=== PATIENT | male | born 1960 | race American Indian/Alaskan Native ===

== ENCOUNTER 2016-06-10 06:46 | Outpatient (CLI) | payer BC ==
[2016-06-10] MEDS ORDERED: NACL ONE (08:57)
--- NOTE | 2016-06-10 09:44 | Cat Scan Report ---
CT scan of chest with IV contrast: History: Gastric mass. Findings: No endobronchial or mediastinal mass. No mediastinal, hilar or axillary adenopathy. No pleural pericardial effusion. Normal parenchyma. No consolidation or mass. Impression: Essentially negative CT scan of chest.
--- NOTE | 2016-06-10 09:48 | Cat Scan Report ---
CT scan of abdomen and pelvis with IV contrast: History: Gastric mass. Findings: Normal liver spleen pancreas and gallbladder. There is no distinct mass identified in the stomach and the duodenum . Mucosal irregularity is noted. There is a fluid level identified. Normal adrenals and kidney parenchyma and bladder. No free intraperitoneal fluid or air. No evidence of adenopathy. Normal aorta. Gaseous colon with moderate volume stool in colon. No evidence of appendicitis or diverticulitis. Impression: Suspected mucosal changes of the stomach. Gastroscopy may be recommended.
== END 2016-06-10 06:47 | disposition home or self-care (01) ==
LOC: CT 06:46 → EDSEX 08:00
PROVIDERS: ATTEND Internal Medicine
DX: K31.89 Other diseases of stomach and duodenum (principal)
CPT/HCPCS: 71260; 74177; Q9967

== ENCOUNTER 2016-07-15 07:45 | Emergency (ER) | payer BC ==
[2016-07-15 09:14] LABS: Basophils % (Auto) 0.4 % (0.0-1.8); Eosinophils % (Auto) 0.4 % (0.0-4.3); Hematocrit 39.3 % (35.5-45.6); Hemoglobin 12.8 gm/dl (11.8-15.2); Mean Corpuscular HGB Conc 33 % (32-34); Mean Corpuscular Hemoglobin 29 pg (28-32); Mean Corpuscular Volume 89 fl (84-94); Platelet Count 367 K/mm3 (140-440); Red Cell Distribution Width 14.6 % (13.2-15.2); White Blood Count 10.3 K/mm3 (4.5-11.0)
[2016-07-15 09:23] LABS: Bilirubin,Urine NEG (Negative); Blood,Urine NEG (Negative); Ketones,Urine NEG (Negative); Leukocyte Esterase,Urine NEG (Negative); Mucus,Urine FEW /HPF; Nitrite,Urine NEG (Negative); Protein,Urine <15 mg/dL mg/dL (Negative); Sperm,Urine FEW /HPF (NP); Urobilinogen,Urine < 2.0 mg/dL (<2.0)
--- NOTE | 2016-07-15 09:57 | Emergency Department Report ---
ED Male HPI - General Chief complaint: Urogenital-Male Stated complaint: UNABLE TO URINATE Time Seen by Provider: 07/15/16 08:51 Source: patient Mode of arrival: Ambulatory Limitations: No Limitations - History of Present Illness Initial comments: 55-year-old male with a past medical history of stomach cancer status post partial gastrectomy 06/26/2016 which includes removal 75% of his stomach presents to the hospital with difficulty urinating. Patient has not had any urinary problems until his recent surgery. He was having difficulty with urine output and was placed on Flomax. Patient was having dribbling urinary output throughout the day yesterday and became obstructed at 8 PM. 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 Patient has not had a history of urinary obstruction in the past. Urologist:Dr Lala Ramos and patient is scheduled to see her partner soon. Patient states he is currently taking Flomax, Pepcid, and Carafate. He also has a pain medication. Patient has been doubling up on Flomax and an effort to alleviate urinary retention - Related Data Allergies Allergy/AdvReac Type Severity Reaction Status Date / Time No Known Allergies Allergy Unverified 06/10/16 06:47 ED Review of Systems ROS: Stated complaint: UNABLE TO URINATE Other details as noted in HPI Comment: All other systems reviewed and negative Other: Constitutional: No fevers chills Eyes: No eye pain visual changes ENT: No ear pain or throat pain Neck: Denies pain Respiratory: Denies cough wheezing shortness of breath Cardiovascular: Denies chest pain, palpitations, syncope GI: as per hpi : as prh pi Musculoskeletal: Denies back pain Skin: Denies rash, lesions, erythema Neurologic: Denies headache, numbness, weakness Psychiatric: Denies suicidal ideation, hallucinations ED Past Medical Hx - Past Medical History Previous Medical History?: Yes Hx of Cancer: Yes (stomach) - Surgical History Past Surgical History?: Yes Additional Surgical History: Stomach surgery with 75% of stomach removed - Social History Smoking Status: Never Smoker Substance Use Type: Prescribed ED Physical Exam - General Limitations: No Limitations - Other Other exam information: Examined after Marcial placement. Nurse Had difficulty placing initial Marcial but has successful coud catheter. Patient reports relief and suprapubic abdominal pain after Marcial placement. Initial output of 100 mL General: No limitations, patient is alert in no acute distress Head exam: Atraumatic, normocephalic Eyes exam: Normal appearance, pupils equal reactive to light, extraocular movements intact ENT: Moist mucous membrane, normal oropharynx Neck exam: Normal inspection, full range of motion, no meningismus nontender Respiratory exam: Clear to auscultation bilateral, no wheezes, rales, crackles Cardiovascular: Normal rate and rhythm, normal heart sounds Abdomen: Soft, midline vertical upper to mid abdominal phone with Steri-Strips in place. No wound dehiscence. Mild tenderness to surgical/wound area mild suprapubic tenderness, with normal bowel sounds, no rebound, or guarding : Marcial catheter in place Extremity: Full range of motion normal inspection no deformity Back: Normal Inspection, full range of motion, no tenderness Neurologic: Alert, oriented x3, cranial nerves intact, no motor or sensory deficit Psychiatric: normal affect, normal mood Skin: Warm, dry, intactam ED Course Vital Signs 07/15/16 07/15/16 07/15/16 08:04 08:51 11:29 Temperature 97.6 F Pulse Rate 122 H Respiratory 20 24 18 Rate Blood Pressure 164/101 Blood Pressure [Left] O2 Sat by Pulse 100 97 Oximetry 07/15/16 12:40 Temperature 97.4 F L Pulse Rate 89 Respiratory 16 Rate Blood Pressure Blood Pressure 125/81 [Left] O2 Sat by Pulse 96 Oximetry - Reevaluation(s) Reevaluation #1: 07/15/16 11:21 Patient requesting pain medication at this time. Dilaudid 0.5 mg and Zofran ordered. Patient also received 1 L normal saline for mild hyponatremia/ hypochloremia Reevaluation #2: 07/15/16 12:31 pt reports feeling much better with ed treatment Reevaluation #3: 07/15/16 12:54 Vital signs improved after Marcial catheter placed - Consultations Consultation #1: 07/15/16 10:59 Case discussed with Eamon SAN for urology [facility] at [phone]. She states that patient is now seeing Dr Chow and will pass message that patient required ER visitation for urinary retention and will be discharged home. ED Medical Decision Making - Lab Data Result diagrams: 07/15/16 09:05 07/15/16 09:05 Lab Results 0507/15/16 07/15/16 Range/Units 08:40 09:05 09:05 WBC 10.3 (4.5-11.0) K/mm3 RBC 4.40 (3.65-5.03) M/mm3 Hgb 12.8 (11.8-15.2) gm/dl Hct 39.3 (35.5-45.6) % MCV 89 (84-94) fl MCH 29 (28-32) pg MCHC 33 (32-34) % RDW 14.6 (13.2-15.2) % Plt Count 367 (140-440) K/mm3 Lymph % (Auto) 10.1 L (13.4-35.0) % Thomas % (Auto) 6.7 (0.0-7.3) % Eos % (Auto) 0.4 (0.0-4.3) % Baso % (Auto) 0.4 (0.0-1.8) % Lymph # 1.0 L (1.2-5.4) K/mm3 Thomas # 0.7 (0.0-0.8) K/mm3 Eos # 0.0 (0.0-0.4) K/mm3 Baso # 0.0 (0.0-0.1) K/mm3 Seg Neutrophils % 82.4 H (40.0-70.0) % Seg Neutrophils # 8.5 H (1.8-7.7) K/mm3 Sodium 131 L (137-145) mmol/L Potassium 4.1 (3.6-5.0) mmol/L Chloride 91.3 L (98-107) mmol/L Carbon Dioxide 28 (22-30) mmol/L Anion Gap 16 mmol/L BUN 7 L (9-20) mg/dL Creatinine 0.8 (0.8-1.5) mg/dL Estimated GFR > 60 ml/min BUN/Creatinine Ratio 8.75 % Glucose 115 H (75-100) mg/dL Calcium 9.4 (8.4-10.2) mg/dL Urine Color Yellow (Yellow) Urine Turbidity Clear (Clear) Urine pH 5.0 (5.0-7.0) Ur Specific [place] 1.013 (1.003-1.030) Urine Protein <15 mg/dl (Negative) mg/dL Urine Glucose (UA) Neg (Negative) mg/dL Urine Ketones Neg (Negative) mg/dL Urine Blood Neg (Negative) Urine Nitrite Neg (Negative) Urine Bilirubin Neg (Negative) Urine Urobilinogen < 2.0 (<2.0) mg/dL Ur Leukocyte Esterase Neg (Negative) Urine WBC (Auto) 1.0 (0.0-6.0) /HPF Urine RBC (Auto) 1.0 (0.0-6.0) /HPF Urine Mucus Few /HPF Urine Sperm Few (MANAGER ESTATE) /HPF - Medical Decision Making Patient had relief with placement of Marcial. He will be discharged with the Marcial and leg bag for urinary retention. Case discussed with the urology office. Information will be passed on to Dr. Chow. No signs of infection. Patient received 1 L normal saline for mild hyponatremia/hypochloremia. Follow- up will be encouraged - Differential Diagnosis urinary retention, BPH, prostate cancer Critical Care Time: No Critical care attestation.: If time is entered above; I have spent that time in minutes in the direct care of this critically ill patient, excluding procedure time. ED Disposition Clinical Impression: Urine retention, Hyponatremia Disposition: DISCHARGED TO HOME OR SELFCARE Is pt being admited?: No Does the pt Need Aspirin: No Condition: Stable Instructions: Urinary Retention in Men (ED), Hyponatremia (ED) Additional Instructions: Continue to use the Marcial and leg bag until removed by your urologist. Return if symptoms worsen. Follow up with your doctor for further treatment and reevaluation of your sodium levels. Tour sodium today was 131 with a chloride of 91 prior to receiving your bag of IV fluids Referrals: [facility] [Other] - 2-3 Days PRIMARY CARE, [Primary Care Provider] - 2-3 Days Time of Disposition: 12:54
[2016-07-15 10:05] LABS: Anion Gap 16 mmol/L; BUN/Creatinine Ratio 8.75; Blood Urea Nitrogen 7 mg/dL (9-20); Calcium 9.4 mg/dL (8.4-10.2); Carbon Dioxide 28 mmol/L (22-30); Chloride 91.3 mmol/L (98-107); Glucose 115 mg/dL (75-100); Potassium 4.1 mmol/L (3.6-5.0); Sodium 131 mmol/L (137-145)
[2016-07-15] MEDS ORDERED: NACL 0.9% 1000 ML 1,000 ML IV ONE (10:34)
[2016-07-15] MEDS ORDERED: ZOFRAN IV ONE (11:20)
[2016-07-15] MEDS ORDERED: DILAUDID IV ONE (11:20)
[2016-07-15 12:41] VITALS: BP 125/81
== END 2016-07-15 13:50 | disposition home or self-care (01) ==
LOC: ED 07:45
DX: R33.9 Retention of urine, unspecified (principal); E87.1 Hypo-osmolality and hyponatremia; C16.9 Malignant neoplasm of stomach, unspecified
CPT/HCPCS: 36415; 51702; 80048; 81001; 85025; 96361; 96374; 96375; 99283; J1170; J2405; J7030

== ENCOUNTER 2016-07-17 08:04 | Outpatient (CLI) | payer BC ==
--- NOTE | 2016-07-18 07:55 | PET Report ---
PET SB TO MT INITIAL: HISTORY: Stomach cancer. TECHNIQUE: 12.9 millicuries F-18 FDG was administered intravenously. Noncontrast CT images and PET images were obtained from the skull base to the proximal thighs. Fused images were reviewed on a workstation. The patient's blood glucose level measured 86. COMPARISON: No previous PET CT. CT chest abdomen pelvis dated 06/10/16. FINDINGS: BRAIN: physiologic FDG uptake in the imaged brain. NECK: physiologic FDG uptake. MEDIASTINUM: physiologic FDG uptake. LUNGS: physiologic FDG uptake. PLEURA/PERICARDIUM: physiologic FDG uptake. THORACIC LYMPH NODES: physiologic FDG uptake. HEPATOBILIARY: physiologic FDG uptake. Mean liver SUV measures 2.4. PANCREAS: physiologic FDG uptake. SPLEEN: physiologic FDG uptake. ADRENAL GLANDS: physiologic FDG uptake. KIDNEYS/RENAL COLLECTING SYSTEMS: physiologic FDG uptake. BOWEL/MESENTERY: physiologic FDG uptake. Surgical changes in the stomach are noted since 06/10/16 exam. No abnormal radiotracer uptake in the stomach is demonstrated. PELVIC VISCERA: physiologic FDG uptake. ABDOMINAL/PELVIC LYMPH NODES: physiologic FDG uptake. MUSCULOSKELETAL: physiologic FDG uptake. IMPRESSION: Negative PET/CT. No evidence for residual disease or metastasis.
== END 2016-07-17 08:05 | disposition home or self-care (01) ==
LOC: PET 08:04
PROVIDERS: ATTEND Internal Medicine Hematology & Oncology
DX: C16.9 Malignant neoplasm of stomach, unspecified (principal)
CPT/HCPCS: 78815; 82962; A9552

== ENCOUNTER 2017-05-24 10:00 | Emergency (ER) | payer SELFPAY ==
[2017-05-24 11:28] LABS: Basophils # (Auto) 0.1 K/mm3 (0.0-0.1); Basophils % (Auto) 0.4 % (0.0-1.8); Eosinophils # (Auto) 0.1 K/mm3 (0.0-0.4); Eosinophils % (Auto) 0.7 % (0.0-4.3); Hematocrit 46.9 % (35.5-45.6); Hemoglobin 15.4 gm/dl (11.8-15.2); Lymphocytes # (Auto) 1.8 K/mm3 (1.2-5.4); Lymphocytes % (Auto) 14.6 % (13.4-35.0); Mean Corpuscular HGB Conc 33 % (32-34); Mean Corpuscular Hemoglobin 30 pg (28-32); Mean Corpuscular Volume 92 fl (84-94); Monocytes # (Auto) 1.4 K/mm3 (0.0-0.8); Monocytes % (Auto) 10.8 % (0.0-7.3); Platelet Count 335 K/mm3 (140-440); Red Blood Count 5.12 M/mm3 (3.65-5.03); Red Cell Distribution Width 15.1 % (13.2-15.2)
[2017-05-24 11:43] LABS: Alanine Aminotransferase 11 units/L (7-56); Albumin 3.8 g/dL (3.9-5); BUN/Creatinine Ratio 11; Blood Urea Nitrogen 9 mg/dL (9-20); Calcium 9.3 mg/dL (8.4-10.2); Hemolysis Index 8
--- NOTE | 2017-05-24 12:05 | XRay Report ---
Left knee 2 views: History: Left knee swelling with possible infection. Findings: Normal articular surfaces. No definite evidence of joint effusion. No fracture. Soft tissue swelling anterior aspect of the knee/patella. There is a large spur identified at the anterior superior patella. Impression: Spur anterior superior patella. Soft tissue swelling anterior to patella.
[2017-05-24 14:51] VITALS: BP 142/93
--- NOTE | 2017-05-24 16:14 | Emergency Department Report ---
- General Chief complaint: Extremity Injury, Lower Stated complaint: LEFT KNEE PAIN Time Seen by Provider: 05/24/17 15:24 Source: patient, family Mode of arrival: Ambulatory Limitations: No Limitations - History of Present Illness Initial comments: Patient reports that 4 days ago he noted a ingrown hair to his left knee.. Denies any numbness or tingling. [id number] pain medication taken without any relief. He said he meant to pull it out but he didn't and then he woke up the next morning it was infected. 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 Denies any calf tenderness or leg swelling. Denies any pain to leg. Pain is localized to me. Denies any radiation of pain proximally or distally. Pain is 8/10 worse with walking and movement better with rest then. Patient said there is pus coming out of his left knee. He said he started to squeeze it but is not getting any better. Patient reports he is a history of BPH, stomach cancer which he said he had surgery which they removed 2 and 75% of his stomach and now he is cancer free per patient. He denies any history of knee injury or arthritis. Denies any immune disorder. MD complaint: abscess/boil Onset/Timin -: days(s) Tetanus Up to Date: no Location: LLE (left knee) Severity: severe Severity scale (0 -10): 8 Quality: aching, constant Consistency: constant Improves with: immobilization, rest Worsens with: palpation, movement Context: other (infection from ingrown hair) Associated symptoms: athralgias Treatments Prior to Arrival: bandages, attempted to drain pus at, other (over- the-counter pain medicine) - Related Data Previous Rx's Medication Instructions Recorded Last Taken Type Acetaminophen/Codeine [Tylenol 1 tab PO Q6H PRN #12 tab 05/24/17 Unknown Rx /Codeine # 3 tab] Ibuprofen [Motrin] 600 mg PO Q8H PRN #15 tablet 05/24/17 Unknown Rx Sulfamethoxazole/Trimethoprim 2 each PO BID 10 Days #40 tablet 05/24/17 Unknown Rx [Bactrim DS TAB] Allergies Allergy/AdvReac Type Severity Reaction Status Date / Time No Known Allergies Allergy Unverified 06/10/16 06:47 Abscess Boil HPI - HPI Chief Complaint: Extremity Injury, Lower Stated Complaint: LEFT KNEE PAIN Time Seen by Provider: 05/24/17 15:24 Home Medications: Previous Rx's Medication Instructions Recorded Last Taken Type Acetaminophen/Codeine [Tylenol 1 tab PO Q6H PRN #12 tab 05/24/17 Unknown Rx /Codeine # 3 tab] Ibuprofen [Motrin] 600 mg PO Q8H PRN #15 tablet 05/24/17 Unknown Rx Sulfamethoxazole/Trimethoprim 2 each PO BID 10 Days #40 tablet 05/24/17 Unknown Rx [Bactrim DS TAB] Allergies/Adverse Reactions: Allergies Allergy/AdvReac Type Severity Reaction Status Date / Time No Known Allergies Allergy Unverified 06/10/16 06:47 ED Review of Systems ROS: Stated complaint: LEFT KNEE PAIN Other details as noted in HPI Comment: All other systems reviewed and negative Constitutional: no symptoms reported Respiratory: no symptoms reported Cardiovascular: denies: chest pain, palpitations, dyspnea on exertion, orthopnea , edema, syncope, paroxysmal nocturnal dyspnea Gastrointestinal: denies: abdominal pain, nausea, vomiting, diarrhea Musculoskeletal: joint swelling, arthralgia. denies: back pain, myalgia Skin: denies: rash Neurological: vertigo. denies: headache, numbness, paresthesias, confusion, abnormal gait ED Past Medical Hx - Past Medical History Previous Medical History?: Yes Hx of Cancer: Yes (stomach) Additional medical history: BPH - Surgical History Past Surgical History?: Yes Additional Surgical History: Stomach surgery with 75% of stomach removed - Family History Family history: hypertension - Social History Smoking Status: Current Every Day Smoker Substance Use Type: Alcohol, Marijuana, Prescribed - Medications Home Medications: Home Medications Medication Instructions Recorded Confirmed Last Taken Type Acetaminophen/Codeine [Tylenol 1 tab PO Q6H PRN #12 tab 05/24/17 Unknown Rx /Codeine # 3 tab] Ibuprofen [Motrin] 600 mg PO Q8H PRN #15 tablet 05/24/17 Unknown Rx Sulfamethoxazole/Trimethoprim 2 each PO BID 10 Days #40 tablet 05/24/17 Unknown Rx [Bactrim DS TAB] ED Physical Exam - General Limitations: No Limitations General appearance: alert, in no apparent distress - Head Head exam: Present: atraumatic, normocephalic, normal inspection - Eye Eye exam: Present: normal appearance, PERRL, EOMI Pupils: Present: normal accommodation - ENT ENT exam: Present: normal exam, normal orophraynx, mucous membranes moist - Neck Neck exam: Present: normal inspection, full ROM. Absent: tenderness, meningismus, lymphadenopathy, thyromegaly - Respiratory Respiratory exam: Present: normal lung sounds bilaterally. Absent: respiratory distress, chest wall tenderness - Cardiovascular Cardiovascular Exam: Present: regular rate, normal rhythm, normal heart sounds. Absent: systolic murmur, diastolic murmur - GI/Abdominal GI/Abdominal exam: Present: soft, normal bowel sounds. Absent: distended, tenderness, guarding, rebound, rigid, organomegaly, mass, bruit, pulsatile mass , hernia - Extremities Exam Extremities exam: Present: full ROM, tenderness (left knee), normal capillary refill, joint swelling (knee), other (no clubbing, cyanosis or edema. Extremities. +2 pulses to all extremities. No neurovascular compromise. +5 strength in all extremities.). Absent: normal inspection, pedal edema, calf tenderness - Expanded Lower Extremity Exam Left Hip exam: Present: normal inspection, full ROM, pelvic stability. Absent: tenderness, swelling, abrasion, laceration, ecchymosis, deformity, crepidus, dislocation, erythema, external rotation, internal rotation, shortening Upper Leg exam: Present: normal inspection, full ROM. Absent: tenderness, swelling, abrasion, laceration, ecchymosis, deformity, crepidus, dislocation, erythema Knee exam: Present: full ROM (patient able to flex and fully extend his left knee without any difficulties. He is able to ambulate without any difficulties) , tenderness (anterior left knee), swelling (anterior left knee), erythema ( cellulitis with quarter-sized indurated area that is fluctuant. Able to express pus from side.), full knee extension. Absent: normal inspection, abrasion, laceration, ecchymosis, deformity, crepidus, dislocation, effusion, pain w/ pronation/supination, posterior draw sign, pain/laxity with valgus, pain /laxity with varus Lower Leg exam: Present: normal inspection, full ROM. Absent: tenderness, swelling, abrasion, laceration, ecchymosis, deformity, crepidus, dislocation, erythema, palpable cord, Otis's sign Ankle exam: Present: normal inspection, full ROM. Absent: tenderness, swelling , abrasion, laceration, ecchymosis, deformity, crepidus, dislocation, erythema Foot/Toe exam: Present: normal inspection, full ROM. Absent: tenderness, swelling, abrasion, laceration, ecchymosis, deformity, crepidus, dislocation, erythema, amputation, puncture wound, foreign body, calcaneal tenderness, tenderness at base of 5th metatarsal, nail avulsion, subungual hematoma Neuro vascular tendon exam: Present: no vascular compromise. Absent: pulse deficit, abnormal cap refill, motor deficit, sensory deficit, tendon deficit, extremity cold to touch, pallor, abnormal 2-point discrimination, decreased fine /light touch, foot drop, peroneal nerve deficit, significant pain with passive ROM of distal joint Gait: Positive: observed and limited by pain - Back Exam Back exam: Present: normal inspection, full ROM. Absent: tenderness, CVA tenderness (R), CVA tenderness (L), muscle spasm, paraspinal tenderness, vertebral tenderness, rash noted - Neurological Exam Neurological exam: Present: alert, oriented X3, normal gait, reflexes normal - Psychiatric Psychiatric exam: Present: normal affect, normal mood - Skin Skin exam: Present: warm, dry, erythema, other. Absent: intact - Expanded Skin Exam Expanded Type of lesion: Present: abscess (left knee) Distribution of rash: other (left knee) Description of rash: Present: size (1 x 1 cm erythema with quarter size indurated fluctuant area.), tenderness, erythematous, swelling, discharge, fluctuant, indurated. Absent: bullous, petechial, purpuic, urticarial, crusting 1 - Left knee a cellulitis and minor abscess. Patient able to flex and extend knee without any difficulties and bleeding without any difficulties. ED Course Vital Signs 05/24/17 05/24/17 10:46 14:50 Temperature 97.9 F 97.8 F Pulse Rate 99 H 100 H Respiratory 16 20 Rate Blood Pressure 135/92 142/93 O2 Sat by Pulse 100 Oximetry - Reevaluation(s) Reevaluation #1: 05/24/17 17:27 Patient received clindamycin 600 mg IM and emergency room to treat left knee cellulitis and minor abscess, Boostrix 0.5 ml im, express minimal amount of pus. No signs of deep infection. X-ray does not show osteomyelitis or any effusion . Cleansed and flushed with iodine and normal saline, Neosporin ointment was applied and sterile dry dressing placed over 1. 05/24/17 17:28 - I & D Left Anterior Knee Type of Procedure: Simple Site: left anterior knee Blade Size: express pus with finger I & D Procedure: betadine prep, sterile drapes applied, sterile dressing applied , no gauze wick placed Progress: Left knee cleansed with iodine and normal saline, under sterile procedure left knee was already draining pus. Small amount of pus expressed from left knee. Area cleansed with iodine, normal saline, Neosporin ointment placed followed by sterile dry dressing. ED Medical Decision Making - Lab Data Result diagrams: 05/24/17 11:10 05/24/17 11:10 Lab Results 05/24/17 05/24/17 Range/Units 11:10 11:10 WBC 12.6 H (4.5-11.0) K/mm3 RBC 5.12 H (3.65-5.03) M/mm3 Hgb 15.4 H (11.8-15.2) gm/dl Hct 46.9 H (35.5-45.6) % MCV 92 (84-94) fl MCH 30 (28-32) pg MCHC 33 (32-34) % RDW 15.1 (13.2-15.2) % Plt Count 335 (140-440) K/mm3 Lymph % (Auto) 14.6 (13.4-35.0) % Marin[place] % (Auto) 10.8 H (0.0-7.3) % Eos % (Auto) 0.7 (0.0-4.3) % Baso % (Auto) 0.4 (0.0-1.8) % Lymph # 1.8 (1.2-5.4) K/mm3 Marinette # 1.4 H (0.0-0.8) K/mm3 Eos # 0.1 (0.0-0.4) K/mm3 Baso # 0.1 (0.0-0.1) K/mm3 Seg Neutrophils % 73.5 H (40.0-70.0) % Seg Neutrophils # 9.3 H (1.8-7.7) K/mm3 Sodium 139 (137-145) mmol/L Potassium 5.0 (3.6-5.0) mmol/L Chloride 96.3 L (98-107) mmol/L Carbon Dioxide 30 (22-30) mmol/L Anion Gap 18 mmol/L BUN 9 (9-20) mg/dL Creatinine 0.8 (0.8-1.5) mg/dL Estimated GFR > 60 ml/min BUN/Creatinine Ratio 11 % Glucose 86 (75-100) mg/dL Calcium 9.3 (8.4-10.2) mg/dL Total Bilirubin 0.60 (0.1-1.2) mg/dL AST 27 (5-40) units/L ALT 11 (7-56) units/L Alkaline Phosphatase 105 (35-129) units/L Total Protein 7.6 (6.3-8.2) g/dL Albumin 3.8 L (3.9-5) g/dL Albumin/Globulin Ratio 1.0 % Wound culture collected and sent - Radiology Data Radiology results: report reviewed X-ray of left knee revealed spur anterior superior Patella. Soft tissue swelling noted to the anterior left knee. No evidence of joint effusion on x- ray or exam. Normal articular surfaces. No fracture noted. No mention of osteomyelitis. Infection is superficial - Medical Decision Making ED course: he reports that he noted he has an ingrown hair on the left knee anteriorly and he meant to clear up but he woke up with a bump and over the last 4 days it's been with increased redness, pain and swelling. Physical findings for erythema left knee with small indurated area that is open and draining small amount of pus. Patient has no restriction in movement to his knees. Pulses are normal. X-ray found no acute fracture or mention of osteomyelitis but did mention Soft tissue swelling without any effusion. Patient able to flex and extend his left knee fully and reported pain. Patient with cellulitis and abscess left knee. Left knee cleansed with iodine and saline, small amount of pus expressed from indurated site. Cleansed with normal saline and sterile dry dressing placed after application of Neosporin ointment. I discussed the patient that if he developed increased redness, increased pain, restriction in movement to his left knee, change in temperature to return to the emergency room ESTIVEN. Patient's CBC showed he has mild elevation in white count with bacterial shift to the left. Chemistry stable. Wound culture collected and sent. Patient received to minimize the fifth digit milligrams IM, Boostrix 0.5 mL IM, and Dante 5/325 mg 2 tablets by mouth and Motrin 600 mg by mouth in emergency room. I discussed with him his x-ray and lab results and he voiced understanding he also was understanding of diagnosis and need to follow-up. Patient does not have a primary care doctor side told them to follow-up with [facility] and if he cannot get into some outside Medical Center within 2 days that he needs to return to the emergency room for reevaluation. Patient discharged home in stable condition with a prescription for Bactrim DS, Keflex and Tylenol 3. Critical care attestation.: If time is entered above; I have spent that time in minutes in the direct care of this critically ill patient, excluding procedure time. ED Disposition Clinical Impression: Abscess or cellulitis of knee Knee pain, left Qualifiers: Chronicity: acute Qualified Code(s): M25.562 - Pain in left knee Disposition: DC-01 TO HOME OR SELFCARE Is pt being admited?: No Does the pt Need Aspirin: No Condition: Stable Instructions: Arthralgia (ED), Knee Pain (ED), Knee Exercises (GEN), Acute Wound Care (ED), Cellulitis (ED), Abscess (ED) Additional Instructions: Take antibiotic as prescribed and please remember to take all antibiotic until completed. Follow-up with your primary care physician in 2 days and if he cannot get in at [facility] please return to the emergency room for reevaluation of wound Keep affected area clean and dry. He is to not drive or operate heavy machinery while taking Tylenol No. 3 as this medication causes drowsiness Affected area for 2 days. Followed discharge instruction on acute wound care . Please return to emergency room if you develop increasing redness, streaking, fever, difficulty moving left knee and increase in pain. Prescriptions: Acetaminophen/Codeine [Tylenol /Codeine # 3 tab] 1 tab PO Q6H PRN #12 tab PRN Reason: moderate to severe pain Ibuprofen [Motrin] 600 mg PO Q8H PRN #15 tablet PRN Reason: Pain Sulfamethoxazole/Trimethoprim [Bactrim DS TAB] 2 each PO BID 10 Days #40 tablet Referrals: PRIMARY CARE, [Primary Care Provider] - 05/26/17 [facility] [Outside] - 05/26/17 (If you cannot get in with primary care or some [facility], please return to the emergency room in 2 days for reevaluation of wound.) Forms: Work/School Release Form(ED)
[2017-05-24] MEDS ORDERED: TRIPLE ANTIBIOTIC TP ONE (16:15)
[2017-05-24] MEDS ORDERED: CLEOCIN IM ONE (16:15)
[2017-05-24] MEDS ORDERED: MOTRIN PO ONE (16:15)
[2017-05-24] MEDS ORDERED: NORCO 5/325 PO ONE (16:15)
== END 2017-05-24 18:29 | disposition home or self-care (01) ==
LOC: ED 10:00
DX: L02.416 Cutaneous abscess of left lower limb (principal); F17.200 Nicotine dependence, unspecified, uncomplicated; F12.10 Cannabis abuse, uncomplicated; Z90.49 Acquired absence of other specified parts of digestive tract; Z85.028 Personal history of other malignant neoplasm of stomach
CPT/HCPCS: 36415; 80053; 85025; 87076; 87116; 87186; 96372; A6250

== ENCOUNTER 2019-01-18 07:36 | Emergency (ER) | payer SELFPAY ==
[2019-01-18 07:44] VITALS: BP 125/92
--- NOTE | 2019-01-18 08:06 | Emergency Department Report ---
Chief Complaint: Urogenital-Male Stated Complaint: MEDICATION REFILL Time Seen by Provider: 01/18/19 08:02 - HPI History of Present Illness: Patient is a 58-year-old male with a history of BPH who states he is here to get a refill of his Flomax. Patient took his last pill today. Patient states he has no difficulty urinating at this time. He denies abdominal pain nausea vomiting diarrhea. - ROS Review of Systems: All other systems are reviewed and are negative - Exam Vital Signs: Vital Signs 01/18/19 07:38 Temperature 98.2 F Pulse Rate 102 H Respiratory 16 Rate Blood Pressure 125/92 O2 Sat by Pulse 97 Oximetry Physical Exam: Patient is alert and oriented 3 in no acute distress. Abdomen is soft nontender. Lungs clear to auscultation his heart tones are normal. MSE screening note: Focused history and physical exam performed. Due to findings the following was ordered: ED Medical Decision Making - Medical Decision Making Patient with no emergency medical issue at this time. The patient will be referred to service at [facility] for medication refill. ED Disposition for MSE Clinical Impression: BPH (benign prostatic hyperplasia) Disposition: MED SCREENING EXAM-LEFT Is pt being admited?: No Does the pt Need Aspirin: No Condition: Stable Additional Instructions: Please follow up with urgent care or outside Medical Center. Time of Disposition: 08:07
== END 2019-01-18 08:18 | disposition left against medical advice (07) ==
LOC: ED 07:36
DX: N40.0 Benign prostatic hyperplasia without lower urinary tract symptoms (principal)
CPT/HCPCS: 99281

== ENCOUNTER 2019-01-19 07:25 | Emergency (ER) | payer SELFPAY ==
[2019-01-19 08:08] VITALS: BP 119/83
--- NOTE | 2019-01-19 08:30 | Emergency Department Report ---
ED Recheck HPI - General Chief Complaint: Medical Clearance Stated Complaint: PROSTATE Time Seen by Provider: 01/19/19 08:25 Source: patient Mode of arrival: Ambulatory Limitations: No Limitations - History of Present Illness Initial Comments: 58 yo seen in ER yesterday- he went to [facility] as instructed but because of all the "red tape" he come back here. He states if he does not take his flomax he will be back in a couple days "not able to piss." No new symptoms. Complaint: medication refill request Symptoms Since Prior Visit: no new symptoms - Related Data Previous Rx's Medication Instructions Recorded Last Taken Type Acetaminophen/Codeine [Tylenol 1 tab PO Q6H PRN #12 tab 05/24/17 Unknown Rx /Codeine # 3 tab] Ibuprofen [Motrin] 600 mg PO Q8H PRN #15 tablet 05/24/17 Unknown Rx Sulfamethoxazole/Trimethoprim 2 each PO BID 10 Days #40 tablet 05/24/17 Unknown Rx [Bactrim DS TAB] Tamsulosin [Flomax] 0.8 mg PO QHS #60 cap 01/19/19 Unknown Rx Allergies Allergy/AdvReac Type Severity Reaction Status Date / Time No Known Allergies Allergy Unverified 06/10/16 06:47 ED Review of Systems ROS: Stated complaint: PROSTATE Other details as noted in HPI Comment: All other systems reviewed and negative ED Past Medical Hx - Past Medical History Previous Medical History?: Yes Hx Congestive Heart Failure: (stomach) Additional medical history: BPH. Stomach CA - Surgical History Past Surgical History?: Yes Additional Surgical History: Stomach surgery with 75% of stomach removed - Family History Family history: no significant - Social History Smoking Status: Never Smoker Substance Use Type: Marijuana - Medications Home Medications: Home Medications Medication Instructions Recorded Confirmed Last Taken Type Acetaminophen/Codeine [Tylenol 1 tab PO Q6H PRN #12 tab 05/24/17 Unknown Rx /Codeine # 3 tab] Ibuprofen [Motrin] 600 mg PO Q8H PRN #15 tablet 05/24/17 Unknown Rx Sulfamethoxazole/Trimethoprim 2 each PO BID 10 Days #40 tablet 05/24/17 Unknown Rx [Bactrim DS TAB] Tamsulosin [Flomax] 0.8 mg PO QHS #60 cap 01/19/19 Unknown Rx ED Physical Exam - General Limitations: No Limitations General appearance: alert, in no apparent distress - Head Head exam: Present: atraumatic, normocephalic - Eye Eye exam: Present: normal appearance - ENT ENT exam: Present: mucous membranes moist - Neck Neck exam: Present: normal inspection - Respiratory Respiratory exam: Present: normal lung sounds bilaterally. Absent: respiratory distress - Cardiovascular Cardiovascular Exam: Present: regular rate, normal rhythm. Absent: systolic murmur, diastolic murmur, rubs, gallop - GI/Abdominal GI/Abdominal exam: Present: soft, normal bowel sounds - Rectal Rectal exam: Present: deferred - Extremities Exam Extremities exam: Present: normal inspection - Back Exam Back exam: Present: normal inspection - Neurological Exam Neurological exam: Present: alert, oriented X3 - Psychiatric Psychiatric exam: Present: normal affect, normal mood - Skin Skin exam: Present: warm, dry, intact, normal color. Absent: rash ED Course Vital Signs 01/19/19 08:06 Temperature 97.5 F L Pulse Rate 94 H Respiratory 16 Rate Blood Pressure 119/83 O2 Sat by Pulse 98 Oximetry ED Recheck MDM - Core Measures Measure Exclusions: not indicated - Differential Diagnosis Prescription Refill(s) - Medical Decision Making No new symptoms Pt did as instructed yesterday but could get no help with Rx I've educated on need to have follow up plan- referrals to uro given. He verbalizes understanding. Vital Signs 01/19/19 08:06 Temperature 97.5 F L Pulse Rate 94 H Respiratory 16 Rate Blood Pressure 119/83 O2 Sat by Pulse 98 Oximetry Critical care attestation.: If time is entered above; I have spent that time in minutes in the direct care of this critically ill patient, excluding procedure time. ED Disposition Clinical Impression: BPH (benign prostatic hyperplasia), Medication refill Disposition: DC-01 TO HOME OR SELFCARE Is pt being admited?: No Does the pt Need Aspirin: No Condition: Stable Prescriptions: Tamsulosin [Flomax] 0.8 mg PO QHS #60 cap Referrals: NEGRITA MURRAY MD [Staff Physician] - 3-5 Days Time of Disposition: 08:28
== END 2019-01-19 08:53 | disposition home or self-care (01) ==
LOC: ED 07:25
DX: N40.0 Benign prostatic hyperplasia without lower urinary tract symptoms (principal); F12.10 Cannabis abuse, uncomplicated; Z76.0 Encounter for issue of repeat prescription; Z98.890 Other specified postprocedural states

== ENCOUNTER 2019-08-25 22:43 | Emergency (ER) | payer SELFPAY ==
--- NOTE | 2019-08-25 22:50 | Emergency Department Report ---
ED Altered Mental Status HPI - General Chief Complaint: Neuro Symptoms/Deficit Stated Complaint: POSS STROKE PUI?: Yes Time Seen by Provider: 08/25/19 22:47 Source: EMS Mode of arrival: Stretcher Limitations: Altered Mental Status, Physical Limitation - History of Present Illness Initial Comments: Patient is a 58-year-old male that came in via EMS for possible stroke. Patient is currently altered and nonverbal.. Code stroke was called prior to EMS arrival. Neurology has been consulted. Report received from EMS. EMS sta alexey the patient was at home with his girlfriend and started having left-sided weakness and left-sided numbness and then became nonverbal. Per EMS the patient was using some drugs to include cocaine and alcohol today. Per EMS the patient's vital signs showed hypotension and hypoxia. Patient was placed on 2 L of oxygen and his oxygenation improved. Patient was given fluids and his blood pressure went from 80/60 to 103/70. last known well time 10pm today. MD Complaint: altered mental status, decreased responsiveness, weakness -: Sudden Consistency of Symptoms: constant Context: alcohol abuse, drug abuse - Related Data Previous Rx's Medication Instructions Recorded Last Taken Type Acetaminophen/Codeine [Tylenol 1 tab PO Q6H PRN #12 tab 05/24/17 Unknown Rx /Codeine # 3 tab] Ibuprofen [Motrin] 600 mg PO Q8H PRN #15 tablet 05/24/17 Unknown Rx Sulfamethoxazole/Trimethoprim 2 each PO BID 10 Days #40 tablet 05/24/17 Unknown Rx [Bactrim DS TAB] Tamsulosin [Flomax] 0.8 mg PO QHS #60 cap 01/19/19 Unknown Rx Allergies Allergy/AdvReac Type Severity Reaction Status Date / Time No Known Allergies Allergy Unverified 06/10/16 06:47 ED Review of Systems ROS: Stated complaint: POSS STROKE Other details as noted in HPI Comment: Unobtainable due to pts medical conditions ED Past Medical Hx - Past Medical History Previous Medical History?: Yes Hx Congestive Heart Failure: (stomach) Additional medical history: BPH. Stomach CA - Surgical History Past Surgical History?: Yes Additional Surgical History: Stomach surgery with 75% of stomach removed - Family History Family history: no significant - Social History Smoking Status: Unknown if ever smoked Substance Use Type: Alcohol, Cocaine, Marijuana - Medications Home Medications: Home Medications Medication Instructions Recorded Confirmed Last Taken Type Acetaminophen/Codeine [Tylenol 1 tab PO Q6H PRN #12 tab 05/24/17 Unknown Rx /Codeine # 3 tab] Ibuprofen [Motrin] 600 mg PO Q8H PRN #15 tablet 05/24/17 Unknown Rx Sulfamethoxazole/Trimethoprim 2 each PO BID 10 Days #40 tablet 05/24/17 Unknown Rx [Bactrim DS TAB] Tamsulosin [Flomax] 0.8 mg PO QHS #60 cap 01/19/19 Unknown Rx ED Physical Exam - General Limitations: Altered Mental Status, Physical Limitation General appearance: alert, in no apparent distress - Head Head exam: Present: atraumatic, normocephalic - Eye Eye exam: Present: normal appearance, PERRL Pupils: Present: normal accommodation - ENT ENT exam: Present: mucous membranes moist - Neck Neck exam: Present: normal inspection - Respiratory Respiratory exam: Present: normal lung sounds bilaterally. Absent: respiratory distress, wheezes, rales - Cardiovascular Cardiovascular Exam: Present: regular rate, normal rhythm. Absent: systolic murmur, diastolic murmur, rubs, gallop - GI/Abdominal GI/Abdominal exam: Present: soft, normal bowel sounds - Rectal Rectal exam: Present: deferred - Extremities Exam Extremities exam: Present: normal inspection - Back Exam Back exam: Present: normal inspection - Neurological Exam Neurological exam: Present: altered - Expanded Neurological Exam Expanded Best Eye Response ([place]): (4) open spontaneously Best Motor Response ([place]): (5) localizes to pain Best Verbal Response ([place]): (2) incomprehsible sounds [place] Total: 11 - Skin Skin exam: Present: warm, dry, intact, normal color. Absent: rash - Assessment Assessment Interval: Baseline - Level of Consciousness 1a. Level of Consciousness: arousable/minor stimuli - LOC Questions 1b. LOC Questions: aphasic - LOC Command 1c. LOC Commands: performs no tasks correctly - Best Gaze 2. Best Gaze: forced deviation - Visual 3. Visual: no visual loss - Facial Palsy 4. Facial Palsy: minor paralysis - Motor Arm 5a. Motor Arm Left: drift 5b. Motor Arm Right: no drift - Motor Leg 6a. Motor Leg Left: no drift 6b. Motor Leg Right: no drift - Limb Ataxia 7. Limb Ataxia: absent - Sensory 8. Sensory: normal - Best Language 9. Best Language: mute/global aphasia - Dysarthria 10. Dysarthria: mute/anarrthric - Extinction and Inattention 11. Extinction/Inattention: no abnormality - Scoring Total Score: 14 Stroke Severity: Moderate Stroke ED Course Vital Signs 08/25/19 08/25/19 08/25/19 23:23 23:30 23:37 Temperature Pulse Rate 96 H 94 H Pulse Rate [ Right Arm] Respiratory 15 Rate Respiratory Rate [Right Arm ] Blood Pressure 121/79 121/79 129/79 Blood Pressure [Right Arm] O2 Sat by Pulse Oximetry O2 Sat by Pulse Oximetry [ Right Arm] 08/25/19 08/25/19 08/25/19 23:38 23:39 23:45 Temperature Pulse Rate 90 85 Pulse Rate [ 86 Right Arm] Respiratory 21 Rate Respiratory 20 Rate [Right Arm ] Blood Pressure 129/79 123/80 Blood Pressure 129/79 [Right Arm] O2 Sat by Pulse 98 Oximetry O2 Sat by Pulse 98 Oximetry [ Right Arm] 08/25/19 08/26/19 08/26/19 23:54 00:00 00:09 Temperature Pulse Rate 92 H Pulse Rate [ 88 88 Right Arm] Respiratory 16 Rate Respiratory 20 15 Rate [Right Arm ] Blood Pressure 127/87 Blood Pressure 116/75 135/88 [Right Arm] O2 Sat by Pulse 97 Oximetry O2 Sat by Pulse 98 99 Oximetry [ Right Arm] 08/26/19 00:15 Temperature 98.2 F Pulse Rate 87 Pulse Rate [ Right Arm] Respiratory 10 L Rate Respiratory Rate [Right Arm ] Blood Pressure 135/86 Blood Pressure [Right Arm] O2 Sat by Pulse 100 Oximetry O2 Sat by Pulse Oximetry [ Right Arm] - Reevaluation(s) Reevaluation #1: The charge nurse spoke with the [facility] airlift helicopter and there and will fly due to conditions. We then requested [facility] to transport the patient and come to the hospital on standby as we are waiting on [facility] to fully accept the patient 08/25/19 23:50 Reevaluation #2: EMS at bedside. Report given to EMS. We are waiting on the accepting physician and EMS will transfer the patient. 08/26/19 00:01 Reevaluation #3: Patient has been accepted to [facility]. Patient will go to the neuro ICU. EMS to transport. 08/26/19 00:14 - Consultations Consultation #1: I discussed case with neurologist. Neurologist recommends TPA and an emergent CTA. CT suspicious for an LVO. 08/25/19 23:21 Consultation #2: [facility] consulted 08/25/19 23:22 I discussed case with [facility] neurology. They are going to look at the CTA results and give us a call back. 08/25/19 23:45 Dr Braden has accepted the patient be transferred to [facility]. Dr. Braden states the patient is not a candidate for an endovascular procedure but he has accepted the patient for transfer 08/26/19 00:14 - Lab Data Result diagrams: 08/25/19 23:22 08/25/19 23:22 Lab Results 08/25/19 08/25/19 08/25/19 Range/Units 23:22 23:22 23:22 WBC 9.5 (4.5-11.0) K/mm3 RBC 4.14 (3.65-5.03) M/mm3 Hgb 13.8 (11.8-15.2) gm/dl Hct 40.4 (35.5-45.6) % MCV 98 H (84-94) fl MCH 33 H (28-32) pg MCHC 34 (32-34) % RDW 14.9 (13.2-15.2) % Plt Count 341 (140-440) K/mm3 Lymph % (Auto) 13.6 (13.4-35.0) % [place] % (Auto) 8.0 H (0.0-7.3) % Eos % (Auto) 0.9 (0.0-4.3) % Baso % (Auto) 1.4 (0.0-1.8) % Lymph # 1.3 (1.2-5.4) K/mm3 [place] # 0.8 (0.0-0.8) K/mm3 Eos # 0.1 (0.0-0.4) K/mm3 Baso # 0.1 (0.0-0.1) K/mm3 Seg Neutrophils % 76.1 H (40.0-70.0) % Seg Neutrophils # 7.2 (1.8-7.7) K/mm3 PT 12.6 (12.2-14.9) Sec. INR 0.96 (0.87-1.13) APTT 25.0 (24.2-36.6) Sec. Sodium 137 (137-145) mmol/L Potassium 5.5 H (3.6-5.0) mmol/L Chloride 101.3 (98-107) mmol/L Carbon Dioxide 21 L (22-30) mmol/L Anion Gap 20 mmol/L BUN 6 L (9-20) mg/dL Creatinine 1.1 (0.8-1.5) mg/dL Estimated GFR > 60 ml/min BUN/Creatinine Ratio 5 % Glucose 136 H (75-100) mg/dL Calcium 8.4 (8.4-10.2) mg/dL Troponin T < 0.010 (0.00-0.029) ng/mL - Radiology Data Radiology results: report reviewed CT HEAD WITHOUT CONTRAST INDICATION / CLINICAL INFORMATION: CODE STROKE PROTOCOL!!! Left sided weakness, unable to speak.. TECHNIQUE: All CT scans at this location are performed using CT dose reduction for ALARA by means of automated exposure control. COMPARISON: None available. FINDINGS: HEMORRHAGE: None. EXTRA-AXIAL SPACES: Normal in size and morphology for the patient's age. VENTRICULAR SYSTEM: Normal in size and morphology for the patient's age. CEREBRAL PARENCHYMA: Large acute right MCA infarction with subtle loss of hernandez- white matter differentiation within the right frontal temporal lateral lobes and insular ribbon sign. Dense right MCA sign. MIDLINE SHIFT OR HERNIATION: None. CEREBELLUM / BRAINSTEM: No significant abnormality. ORBITS: Normal as visualized. SOFT TISSUES of HEAD: No significant abnormality. CALVARIUM: No significant abnormality. PARANASAL SINUSES / MASTOID AIR CELLS: Normal as visualized. ADDITIONAL FINDINGS: None. IMPRESSION: 1. No intracranial bleed. 2. Large acute CVA involving the entire right MCA distribution. CTA HEAD WITH CONTRAST HISTORY: Left-sided weakness; unable to speak COMPARISON: None. TECHNIQUE: Routine non-contrast CT Head, CTA of the head and post-contrast CT Head are performed. 3-D/MIP reformats postprocessed. All CT scans at this location are performed using CT dose reduction for ALARA by means of automated exposure control CONTRAST: 100 ml of Omnipaque 350 FINDINGS: CTA Head: Intracranial vertebral arteries: No significant abnormality. Left vertebral artery is dominant artery Basilar artery: No significant abnormality. Posterior cerebral arteries: No significant abnormality. Intracranial internal carotid arteries: No significant abnormality. Anterior cerebral arteries: No significant abnormality. Middle cerebral arteries: Left middle cerebral artery is normal. On the right side. Distal right M1 segment is seen. No collateral circulation is seen to the right middle cerebral artery territory. Dural venous sinuses:Not optimally opacified. No significant abnormality. Additional findings: None. IMPRESSION: Occluded distal right middle cerebral artery; poor leptomeningeal collateral circulation CTA NECK WITH CONTRAST HISTORY: Left-sided weakness; unable to speak COMPARISON: None. TECHNIQUE: Routine CTA of the neck was performed. 3-D/MIP reformats were postprocessed. Percentage stenosis is determined by direct quantitative measurements of diseased internal carotid artery diameter compared with normal distal internal carotid artery reference segments or by criteria similar to NASCET where applicable.All CT scans at this location are performed using CT dose reduction for ALARA by means of automated exposure control CONTRAST: 100 ml of Omnipaque 350 FINDINGS: Aortic arch: No significant abnormality. Cervical vertebral arteries: No significant abnormality. Common carotid arteries: No significant abnormality. Carotid bifurcations: Normal Cervical internal carotid arteries: No significant abnormality. Additional findings: None. IMPRESSION: 1. Normal CTA of the neck - Medical Decision Making Patient is a 58-year-old male that presents emergency room with left-sided weakness, unresponsiveness and altered mental status. Patient is altered and minimally responsive initial evaluation. Patient code stroke initiated prior to arrival with EMS. Patient sent directly to CT scan. Neurology saw the patient in CT and initiated TPA and a CTA immediately. Once initial CT of the head read return I then consulted [facility] for possible transfer for endovascular procedure. After multiple conversation with neuro and neuro had time to review the CTA, neuro did not recommend an endovascular procedure but recommended transfer to their facility. Patient was accepted by the neuro ICU attending. Patient has labs done which were essentially unremarkable. Patient transported via ground EMS since the helicopter transport was not possible due to weather conditions. Patient CT of the head and CTA of the head show an MCA occlusion and infarct. Critical care time documented due to severity of the case and multiple consultants. - Differential Diagnosis Stroke, altered mental status, unresponsive, ICH, - Core Measures AMI Core Measures Followed: Yes Critical Care Time: Yes Critical care time in (mins) excluding proc time.: 80 Critical care attestation.: If time is entered above; I have spent that time in minutes in the direct care of this critically ill patient, excluding procedure time. Critical Care Time: 80 minutes ED Disposition Clinical Impression: Left-sided weakness, Decreased responsiveness, Nonverbal, Acute hyperkalemia Stroke Qualifiers: CVA mechanism: occlusion Precerebral and cerebral artery: unspecified cerebral artery Qualified Code(s): I63.50 - Cerebral infarction due to unspecified occlusion or stenosis of unspecified cerebral artery Altered mental state Qualifiers: Altered mental status type: unspecified Qualified Code(s): R41.82 - Altered mental status, unspecified Hypotension Qualifiers: Hypotension type: unspecified hypotension type Qualified Code(s): I95.9 - Hypotension, unspecified Disposition: DC/TX-70 ANOTHER TYPE HLTHCARE Is pt being admited?: No Does the pt Need Aspirin: No Condition: Critical Time of Disposition: 00:11
[2019-08-25] MEDS ORDERED: ALTEPLASE 100 MG INJ KIT IV ONE ×2 (23:12)
[2019-08-25] MEDS ORDERED: SODIUM CHLORIDE 0.9% 50 ML IVPB IV ONE (23:12)
--- NOTE | 2019-08-25 23:24 | Cat Scan Report ---
CT HEAD WITHOUT CONTRAST INDICATION / CLINICAL INFORMATION: CODE STROKE PROTOCOL!!! Left sided weakness, unable to speak.. TECHNIQUE: All CT scans at this location are performed using CT dose reduction for ALARA by means of automated e xposure control. COMPARISON: None available. FINDINGS: HEMORRHAGE: None. EXTRA-AXIAL SPACES: Normal in size and morphology for the patient's age. VENTRICULAR SYSTEM: Normal in size and morphology for the patient's age. CEREBRAL PARENCHYMA: Large acute right MCA infarction with subtle loss of hernandez-white matter different iation within the right frontal temporal lateral lobes and insular ribbon sign. Dense right MCA sign. MIDLINE SHIFT OR HERNIATION: None. CEREBELLUM / BRAINSTEM: No significant abnormality. ORBITS: Normal as visualized. SOFT TISSUES of HEAD: No significant abnormality. CALVARIUM: No significant abnormality. PARANASAL SINUSES / MASTOID AIR CELLS: Normal as visualized. ADDITIONAL FINDINGS: None. IMPRESSION: 1. No intracranial bleed. 2. Large acute CVA involving the entire right MCA distribution. Critical code stroke result discovered at 10:16 PM central standard time hours and called to Dr. Manuel bailey at 10:17 PM hours on 08/25/2019. A read back was performed. Signer Name: Yash Jacobs MD Signed: 08/25/2019 11:20 PM Workstation Name: [id number]
[2019-08-25 23:43] LABS: Basophils # (Auto) 0.1 K/mm3 (0.0-0.1); Basophils % (Auto) 1.4 % (0.0-1.8); Eosinophils # (Auto) 0.1 K/mm3 (0.0-0.4); Eosinophils % (Auto) 0.9 % (0.0-4.3); Hematocrit 40.4 % (35.5-45.6); Hemoglobin 13.8 gm/dl (11.8-15.2); Lymphocytes # (Auto) 1.3 K/mm3 (1.2-5.4); Lymphocytes % (Auto) 13.6 % (13.4-35.0); Mean Corpuscular HGB Conc 34 % (32-34); Mean Corpuscular Volume 98 fl (84-94); Monocytes # (Auto) 0.8 K/mm3 (0.0-0.8); Platelet Count 341 K/mm3 (140-440); Red Blood Count 4.14 M/mm3 (3.65-5.03); Red Cell Distribution Width 14.9 % (13.2-15.2)
--- NOTE | 2019-08-25 23:53 | Emergency Department Report ---
ED Neuro Deficit HPI - General Chief Complaint: Neuro Symptoms/Deficit Stated Complaint: POSS STROKE Time Seen by Provider: 08/25/19 22:47 Source: EMS Mode of arrival: Stretcher Limitations: Altered Mental Status, Physical Limitation - History of Present Illness Initial Comments: [facility]rology [facility] Date of Service: 08/25/2019 22:35:59 Impression: Right Hemispheric Infarct MCA Distribution Infarct Comments/Sign-Out: R MCA territory infarct. Patient was non-verbal and unable to understand who discussed with his brother who knew his medical history for contraindications. He felt that his brother would want to be treated after discussing the risks and benefits of tpa so we proceeded with treatment. I also spoke with his roommate to confirm history. Cased discussed by ED MD with Fernie while I was on the other line. They will review the CTA and accept for transfer if there is an LVO. R MCA bifurcation occlusion seen on CTA. Mechanism of Stroke: Not Clear Metrics: Last Known Well: 08/25/2019 22:00:00 [employer] Notification Time: 08/25/2019 22:35:18 Arrival Time: 08/25/2019 22:43:00 Stamp Time: 08/25/2019 22:35:59 Time First Login Attempt: 08/25/2019 22:40:47 Video Start Time: 08/25/2019 22:40:47 Symptoms: altered mental status and left sided weakness NIHSS Start Assessment Time: 08/25/2019 22:58:33 tPA Verbal Order Time: 08/25/2019 23:12:26 Patient is a candidate for tPA. tPA CPOE Order Time: 08/25/2019 23:22:59 Needle Time: 08/25/2019 23:37:06 Weight Noted by Staff: 59.7 kg Video End Time: 08/25/2019 23:40:34 Reason for tPA Delay: Delays related to tPA Administration CT head was reviewed and results were: evolving right MCA territory infarct, ASPECT 6 Clinical Presentation is Suggestive of Large Vessel Occlusive Disease, Recommendations are as Follows CTA Head and Neck. Advanced Imaging is Suggestive of Large Vessel Occlusion, Neurointerventional Specialist to be Consulted. Discussed with Neurointerventionalist on 08/25/2019 23:45:31 ED Physician notified of diagnostic impression and management plan on 08/25/2019 23:40:35 Verbal Consent to tPA: I have explained to the Family the nature of the patients condition, the use of tPA fibrinolytic agent, and the benefits to be reasonably expected compared with alternative approaches. I have discussed the likelihood of major risks or complications of this procedure including (if applicable) but not limited to loss of limb function, brain damage, paralysis, hemorrhage, infection, complications from transfusion of blood components, drug reactions, blood clots and loss of life. I have also indicated that with any procedure there is always the possibility of an unexpected complication. All questions were answered and Family express understanding of the treatment plan and consent to the treatment. Our recommendations are outlined below. Recommendations: IV tPA recommended. tPA bolus given Without Complication. IV tPA Total Dose 53.7 mg IV tPA Bolus Dose 5.4 mg IV tPA Infusion Dose - 48.4 mg Routine post tPA monitoring including neuro checks and blood pressure control during/after treatment Monitor blood pressure Check blood pressure and NIHSS every 15 min for 2 h, then every 30 min for 6 h, and finally every hour for 16 h. Manage Blood Pressure per post tPA protocol. Admission to ICU CT brain 24 hours post tPA NPO until swallowing screen performed and passed No antiplatelet agents or anticoagulants (including heparin for DVT prophylaxis) in first 24 hours No Marcial catheter, nasogastric tube, arterial catheter or central venous catheter for 24 hr, unless absolutely necessary Telemetry Bedside swallow evaluation HOB less than 30 degrees Euglycemia Avoid hyperthermia, PRN acetaminophen DVT prophylaxis Inpatient Neurology Consultation Stroke evaluation as per inpatient neurology recommendations Discussed with ED physician History of Present Illness: Patient is a 59 year old Male. Patient was brought by EMS for symptoms of altered mental status and left sided weakness 58 yo M with history of stomach cancer who is presenting with altered mental status and left sided weakness. Patient was picked up from home and per his girlfriend they were having intercourse. During intercourse he suddenly went into a daze and stopped responding. He was not responding to EMS and not moving the left side as well. He did cocaine as well. This occurred around 22:00. He was initially hypotensive. No reported anticoagulants. Per his roommate Jagjit he had a headache and some blurry vision yesterday but he was normal earlier today. Examination: BP(129/79), Blood Glucose(143) 1A: Level of Consciousness - Arouses to minor stimulation + 1 1B: Ask Month and Age - Aphasic + 2 1C: Blink Eyes & Squeeze Hands - Performs 0 Tasks + 2 2: Test Horizontal Extraocular Movements - Forced Gaze Palsy: Cannot Be Overcome + 2 3: Test Visual Lewis - No Visual Loss + 0 4: Test Facial Palsy (Use Grimace if Obtunded) - Minor paralysis (flat nasolabial fold, smile asymmetry) + 1 5A: Test Left Arm Motor Drift - Drift, hits bed + 2 5B: Test Right Arm Motor Drift - No Drift for 10 Seconds + 0 6A: Test Left Leg Motor Drift - No Drift for 5 Seconds + 0 6B: Test Right Leg Motor Drift - No Drift for 5 Seconds + 0 7: Test Limb Ataxia (FNF/Heel-Ward) - No Ataxia + 0 8: Test Sensation - Normal; No sensory loss + 0 9: Test Language/Aphasia - Mute/Global Aphasia: No Usable Speech/Auditory Comprehension + 3 10: Test Dysarthria - Mute/Anarthric + 2 11: Test Extinction/Inattention - No abnormality + 0 NIHSS Score: 15 Patient/Family was informed the Neurology Consult would happen via TeleHealth consult by way of interactive audio and video telecommunications and consented to receiving care in this manner. Due to the immediate potential for life-threatening deterioration due to underlying acute neurologic illness, I spent 35 minutes providing critical care. This time includes time for face to face visit via telemedicine, review of medical records, imaging studies and discussion of findings with providers, the patient and/or family. Dr Kristen Amador [facility] Case [id number] - Related Data Home Medications: Previous Rx's Medication Instructions Recorded Last Taken Type Acetaminophen/Codeine [Tylenol 1 tab PO Q6H PRN #12 tab 05/24/17 Unknown Rx /Codeine # 3 tab] Ibuprofen [Motrin] 600 mg PO Q8H PRN #15 tablet 05/24/17 Unknown Rx Sulfamethoxazole/Trimethoprim 2 each PO BID 10 Days #40 tablet 05/24/17 Unknown Rx [Bactrim DS TAB] Tamsulosin [Flomax] 0.8 mg PO QHS #60 cap 01/19/19 Unknown Rx Allergies/Adverse Reactions: Allergies Allergy/AdvReac Type Severity Reaction Status Date / Time No Known Allergies Allergy Unverified 06/10/16 06:47 ED Review of Systems ROS: Stated complaint: POSS STROKE Other details as noted in HPI ED Past Medical Hx - Past Medical History Previous Medical History?: Yes Hx Congestive Heart Failure: (stomach) Additional medical history: BPH. Stomach CA - Surgical History Past Surgical History?: Yes Additional Surgical History: Stomach surgery with 75% of stomach removed - Social History Smoking Status: Unknown if ever smoked Substance Use Type: Alcohol, Cocaine, Marijuana - Medications Home Medications: Home Medications Medication Instructions Recorded Confirmed Last Taken Type Acetaminophen/Codeine [Tylenol 1 tab PO Q6H PRN #12 tab 05/24/17 Unknown Rx /Codeine # 3 tab] Ibuprofen [Motrin] 600 mg PO Q8H PRN #15 tablet 05/24/17 Unknown Rx Sulfamethoxazole/Trimethoprim 2 each PO BID 10 Days #40 tablet 05/24/17 Unknown Rx [Bactrim DS TAB] Tamsulosin [Flomax] 0.8 mg PO QHS #60 cap 01/19/19 Unknown Rx ED Neuro Physical Exam - General Limitations: Altered Mental Status, Physical Limitation General appearance: alert, in no apparent distress Suspected Stroke: Yes - NIHSS Assessment Interval: Baseline 1a. Level of Consciousness: arousable/minor stimuli 1b. LOC Questions: answers no questions correctly 1c. LOC Commands: performs no tasks correctly 2. Best Gaze: forced deviation 3. Visual: no visual loss 4. Facial Palsy: minor paralysis 5b. Motor Arm Right: no drift 5a. Motor Arm Left: some gravity effort 6a. Motor Leg Left: no drift 6b. Motor Leg Right: no drift 7. Limb Ataxia: absent 8. Sensory: normal 9. Best Language: mute/global aphasia 10. Dysarthria: mute/anarrthric 11. Extinction/Inattention: no abnormality Total Score: 15 Stroke Severity: Moderate Stroke ED Course Vital Signs 08/25/19 08/25/19 23:37 23:38 Pulse Rate 94 H 90 Blood Pressure 129/79 129/79 - Lab Data Result diagrams: 08/25/19 23:22 Lab Results 08/25/19 Range/Units 23:22 WBC 9.5 (4.5-11.0) K/mm3 RBC 4.14 (3.65-5.03) M/mm3 Hgb 13.8 (11.8-15.2) gm/dl Hct 40.4 (35.5-45.6) % MCV 98 H (84-94) fl MCH 33 H (28-32) pg MCHC 34 (32-34) % RDW 14.9 (13.2-15.2) % Plt Count 341 (140-440) K/mm3 Lymph % (Auto) 13.6 (13.4-35.0) % [place] % (Auto) 8.0 H (0.0-7.3) % Eos % (Auto) 0.9 (0.0-4.3) % Baso % (Auto) 1.4 (0.0-1.8) % Lymph # 1.3 (1.2-5.4) K/mm3 [place] # 0.8 (0.0-0.8) K/mm3 Eos # 0.1 (0.0-0.4) K/mm3 Baso # 0.1 (0.0-0.1) K/mm3 Seg Neutrophils % 76.1 H (40.0-70.0) % Seg Neutrophils # 7.2 (1.8-7.7) K/mm3 Critical care attestation.: If time is entered above; I have spent that time in minutes in the direct care of this critically ill patient, excluding procedure time. ED Disposition Clinical Impression: Stroke Disposition: DC/TX-70 ANOTHER TYPE [facility] Is pt being admited?: No Condition: Stable Referrals: SAMUEL RODRIGUEZ MD [Primary Care Provider] - 3-5 Days
[2019-08-25 23:55] LABS: INR 0.96 (0.87-1.13)
[2019-08-26 00:02] LABS: BUN/Creatinine Ratio 5; Blood Urea Nitrogen 6 mg/dL (9-20); Calcium 8.4 mg/dL (8.4-10.2); Hemolysis Index 193
[2019-08-26 00:19] VITALS: BP 135/86
--- NOTE | 2019-08-26 00:24 | Cat Scan Report ---
CTA HEAD WITH CONTRAST HISTORY: Left-sided weakness; unable to speak COMPARISON: None. TECHNIQUE: Routine non-contrast CT Head, CTA of the head and post-contrast CT Head are performed. 3-D /MIP reformats postprocessed. All CT scans at this location are performed using CT dose reduction for ALARA by means of automated exposure control CONTRAST: 100 ml of Omnipaque 350 FINDINGS: CTA Head: Intracranial vertebral arteries: No significant abnormality. Left vertebral artery is dominant artery Basilar artery: No significant abnormality. Posterior cerebral arteries: No significant abnormality. Intracranial internal carotid arteries: No significant abnormality. Anterior cerebral arteries: No significant abnormality. Middle cerebral arteries: Left middle cerebral artery is normal. On the right side. Distal right M1 s egment is seen. No collateral circulation is seen to the right middle cerebral artery territory. Dural venous sinuses:Not optimally opacified. No significant abnormality. Additional findings: None. IMPRESSION: Occluded distal right middle cerebral artery; poor leptomeningeal collateral circulation Signer Name: Ignacio Zheng MD Signed: 08/26/2019 12:20 AM Workstation Name: [id number]
--- NOTE | 2019-08-26 00:27 | Cat Scan Report ---
CTA NECK WITH CONTRAST HISTORY: Left-sided weakness; unable to speak COMPARISON: None. TECHNIQUE: Routine CTA of the neck was performed. 3-D/MIP reformats were postprocessed. Percentage s tenosis is determined by direct quantitative measurements of diseased internal carotid artery diamete r compared with normal distal internal carotid artery reference segments or by criteria similar to NA SCET where applicable.All CT scans at this location are performed using CT dose reduction for ALARA b y means of automated exposure control CONTRAST: 100 ml of Omnipaque 350 FINDINGS: Aortic arch: No significant abnormality. Cervical vertebral arteries: No significant abnormality. Common carotid arteries: No significant abnormality. Carotid bifurcations: Normal Cervical internal carotid arteries: No significant abnormality. Additional findings: None. IMPRESSION: 1. Normal CTA of the neck. Signer Name: Ignacio Zheng MD Signed: 08/26/2019 12:23 AM Workstation Name: [id number]
== END 2019-08-26 00:40 | disposition other institution (70) ==
LOC: ED 22:43
DX: I63.50 Cerebral infarction due to unspecified occlusion or stenosis of unspecified cerebral artery (principal); I95.9 Hypotension, unspecified; R41.82 Altered mental status, unspecified; E87.5 Hyperkalemia
CPT/HCPCS: 36415; 70450; 70496; 70498; 80048; 84484; 85025; 85610; 85730; 96374; 99291; 99292; J2997; Q9967; 82962